=== PATIENT | female | born 1950 | race Caucasian/White ===

== ENCOUNTER 2017-08-12 23:17 | Emergency (ER) | payer OTHER ==
[2017-08-12 23:29] VITALS: RESP 18
[2017-08-13] MEDS ORDERED: NS 1,000 ML IV ONE (00:01)
[2017-08-13] MEDS ORDERED: HYDROmorphONE/DILAUDID 1 MG/ML INJ IVP ONE (00:01)
[2017-08-13] MEDS ORDERED: ONDANSETRON 4 MG/2 ML VIAL ONE (00:02)
[2017-08-13] MEDS ORDERED: HYDROmorphONE/DILAUDID 1 MG/ML INJ ONE (00:02)
--- NOTE | 2017-08-13 00:09 | EDPHY ---
H & P Stated Complaint: c/o suprapubic abd pain spreading into abd, no n/v/d, no other sxx Time Seen by Provider: 08/13/17 00:00 HPI/ROS: HPI The patient presents with abdominal pain which began at about 7:00 p.m. tonight. The pain is crampy, in her lower abdomen, initially intermittent, then becoming constant. It is improved with walking and sitting and worse when she lays down. She has had several days of intermittent constipation which she attributes to eating more carbohydrates than usual. She has not had any nausea or vomiting. She has not had any diarrhea. She has not had any fevers or chills. She has no prior history of similar pain.. REVIEW OF SYSTEMS Constitutional: No fever, no chills. Eyes: No discharge. ENT: No sore throat. Cardiovascular: No chest pain, no palpitations. Respiratory: No cough, no shortness of breath. Gastrointestinal: No abdominal pain, no vomiting. Genitourinary: No hematuria. Musculoskeletal: No back pain. Skin: No rashes. Neurological: No headache. PMHx: History of cholecystectomy, history of breast cancer Soc Hx: Housed PHYSICAL General Appearance: Alert, sitting in a chair, rubbing her abdomen, crying in pain Eyes: Pupils equal and round no pallor or injection ENT, Mouth: Mucous membranes moist Respiratory: There are no retractions, lungs are clear to auscultation Cardiovascular: Regular rate and rhythm Gastrointestinal: Abdomen is soft with tenderness in the lower quadrants without rebound or guarding Neurological: A&O, moves all extremities Skin: Warm and dry, no rashes Musculoskeletal: Neck is supple non tender Extremities: symmetrical, full range of motion Psychiatric: Patient is oriented X 3, there is no agitation Source: Patient Exam Limitations: No limitations - Medical/Surgical History Hx Asthma: No Hx Chronic Respiratory Disease: No Hx Diabetes: No Hx Cardiac Disease: No Hx Renal Disease: No Hx Cirrhosis: No Hx Alcoholism: No Hx HIV/AIDS: No Hx Splenectomy or Spleen Trauma: No Other PMH: cholecystectomy, R breast ca - mastectomy - Social History Smoking Status: Never smoked Constitutional: Initial Vital Signs Temperature (C) 36.8 C 08/12/17 23:21 Heart Rate 64 08/12/17 23:21 Respiratory Rate 18 08/12/17 23:21 Blood Pressure 126/75 H 08/12/17 23:21 O2 Sat (%) 99 08/12/17 23:21 O2 Delivery Mode Room Air O2 (L/minute) 2 Allergies/Adverse Reactions: pistachio nut Allergy (Verified 08/12/17 23:29) Home Medications: Medication Instructions Recorded Pepto-Bismol oral liquid (*) 08/12/17 Medical Decision Making Differential Diagnosis: 66-year-old female, status post cholecystectomy, presents with lower abdominal cramping pain progressive over the last 5 hr. Differential diagnosis includes small bowel obstruction, diverticulitis, constipation. In the emergency department, patient was given IV fluid, 1 L, Dilaudid. Labs were checked and did reveal elevated BUN and creatinine, likely related to dehydration. Otherwise labs were normal. Patient refused CT scanning because she was feeling so much better after receiving pain medication. UA showed ketonuria also consistent with dehydration. The patient believes her symptoms began after eating bread which she feels she is particularly sensitive to. It is possible she could have a gluten sensitivity causing these symptoms. Constipation is also a consideration. I explained to her without performing a CT scan we cannot rule out other serious diagnoses such as small bowel obstruction or diverticulitis. She says she would rather wait and see how her symptoms are. Given that her abdominal exam is now benign, I feel this is reasonable. I will discharge her home. - Data Points Laboratory Results: Laboratory Results 08/13/17 00:05 08/13/17 00:05 08/13/17 08/13/17 08/13/17 01:30 00:05 00:05 WBC 7.19 10^3/uL 10^3/uL (3.80-9.50) RBC 4.21 10^6/uL 10^6/uL (4.18-5.33) Hgb 13.9 g/dL g/dL (12.6-16.3) Hct 38.6 % % (38.0-47.0) MCV 91.7 fL fL (81.5-99.8) MCH 33.0 pg pg (27.9-34.1) MCHC 36.0 g/dL g/dL (32.4-36.7) RDW 11.9 % % (11.5-15.2) Plt Count 230 10^3/uL 10^3/uL (150-400) MPV 9.4 fL fL (8.7-11.7) Neut % (Auto) 73.7 % % (39.3-74.2) Lymph % (Auto) 18.8 % % (15.0-45.0) [place] % (Auto) 6.3 % % (4.5-13.0) Eos % (Auto) 0.3 % L % (0.6-7.6) Baso % (Auto) 0.6 % % (0.3-1.7) Nucleat RBC Rel Count 0.0 % % (0.0-0.2) Absolute Neuts (auto) 5.31 10^3/uL 10^3/uL (1.70-6.50) Absolute Lymphs (auto) 1.35 10^3/uL 10^3/uL (1.00-3.00) Absolute Monos (auto) 0.45 10^3/uL 10^3/uL (0.30-0.80) Absolute Eos (auto) 0.02 10^3/uL L 10^3/uL (0.03-0.40) Absolute Basos (auto) 0.04 10^3/uL 10^3/uL (0.02-0.10) Absolute Nucleated RBC 0.00 10^3/uL 10^3/uL (0-0.01) Immature Gran % 0.3 % % (0.0-1.1) Immature Gran # 0.02 10^3/uL 10^3/uL (0.00-0.10) Sodium 136 mEq/L mEq/L (135-145) Potassium 3.9 mEq/L mEq/L (3.5-5.2) Chloride 100 mEq/L mEq/L (97-110) Carbon Dioxide 24 mEq/l mEq/l (22-31) Anion Gap 12 mEq/L mEq/L (8-16) BUN 26 mg/dL H mg/dL (7-23) Creatinine 1.1 mg/dL H mg/dL (0.6-1.0) Estimated GFR 50 Glucose 98 mg/dL mg/dL (70-100) Calcium 10.8 mg/dL H mg/dL (8.5-10.4) Phosphorus 2.3 mg/dL L mg/dL (2.5-4.5) Total Bilirubin 0.5 mg/dL mg/dL (0.1-1.4) Conjugated Bilirubin 0.2 mg/dL mg/dL (0.0-0.5) Unconjugated Bilirubin 0.3 mg/dL mg/dL (0.0-1.1) AST 40 IU/L IU/L (14-46) ALT 53 IU/L H IU/L (9-52) Alkaline Phosphatase 65 IU/L IU/L (38-126) Total Protein 7.4 g/dL g/dL (6.3-8.2) Albumin 4.5 g/dL g/dL (3.5-5.0) Lipase 72 IU/L IU/L (23-300) Urine Color STEVE Urine Appearance MODERATELY TURBID Urine pH 7.0 (5.0-7.5) Ur Specific [place] 1.021 (1.002-1.030) Urine Protein NEGATIVE (NEGATIVE) Urine Ketones 2+ H (NEGATIVE) Urine Blood NEGATIVE (NEGATIVE) Urine Nitrate NEGATIVE (NEGATIVE) Urine Bilirubin NEGATIVE (NEGATIVE) Urine Urobilinogen NEGATIVE EU EU (0.2-1.0) Ur Leukocyte Esterase NEGATIVE (NEGATIVE) Urine Glucose NEGATIVE (NEGATIVE) Medications Given: Discontinued Medications Hydromorphone HCl (Dilaudid) 0.5 mg IVP EDNOW ONE Stop: 08/13/17 00:02 Last Admin: 08/13/17 00:08 Dose: 0.5 mg Sodium Chloride (Ns) 1,000 mls @ 0 mls/hr IV EDNOW ONE; Wide Open PRN Reason: Protocol Stop: 08/13/17 00:02 Last Admin: 08/13/17 00:06 Dose: 1,000 mls Ondansetron HCl (Zofran) 4 mg IVP EDNOW ONE Stop: 08/13/17 00:15 Last Admin: 08/13/17 00:16 Dose: 4 mg Departure - Departure Disposition: Home, Routine, Self-Care Clinical Impression: Bilateral lower abdominal cramping Condition: Good Instructions: Acute Abdominal Pain (ED) Additional Instructions: Please return to the emergency department if your worse in any way or if you would like to pursue CT scan. Referrals: NONE *PRIMARY CARE P,. [Primary Care Provider] - As per Instructions
[2017-08-13] MEDS ORDERED: IOPAMIDOL (ISOVUE-300) 100 ML BTL ONE (00:12)
[2017-08-13] MEDS ORDERED: ONDANSETRON 4 MG/2 ML VIAL IVP ONE (00:14)
[2017-08-13 00:33] LABS: PLATELET COUNT 230 10^3/uL (150-400)
[2017-08-13 02:32] VITALS: BP 118/79; PULSE 70; TEMP 98.6; O2SAT 93
== END 2017-08-13 02:45 | disposition home or self-care (01) ==
DX: R10.31 Right lower quadrant pain (principal); R10.32 Left lower quadrant pain; E86.9 Volume depletion, unspecified; Z85.3 Personal history of malignant neoplasm of breast; Z90.49 Acquired absence of other specified parts of digestive tract
CPT/HCPCS: 96374; J1170; J2405; Q9967

== ENCOUNTER → 2018-08-06 | Outpatient (CLI) | payer OTHER ==
[~2018-08-06] MED LIST: GADOBUTROL 10 ML VIAL IVP ONE
== END ==
LOC: FIMAGING 11:58
PROVIDERS: ATTEND Family Medicine
DX: N63.31 Unspecified lump in axillary tail of the right breast (principal); Z85.3 Personal history of malignant neoplasm of breast
CPT/HCPCS: A9585; C8908

== ENCOUNTER → 2018-08-24 | Outpatient (CLI) | payer OTHER ==
[~2018-08-24] MED LIST changes: +BUPIVACAINE 0.5% 30 ML SDV ONE; -GADOBUTROL 10 ML VIAL IVP ONE; +LIDOCAINE 1% 300 MG/30 ML SDV ONE
== END ==
LOC: FIMAGING 07:17
PROVIDERS: ATTEND Family Medicine
DX: R22.31 Localized swelling, mass and lump, right upper limb (principal)